=== PATIENT | female | born 2000 | race Caucasian/White ===

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

== ENCOUNTER 2022-01-26 22:06 | Outpatient (CLI) | payer MEDICAID | END 2022-01-26 22:07 | disposition EMS.NT | LOC: EMS 22:06 | DX: O9A.23 Injury, poisoning and certain other consequences of external causes complicating the puerperium (principal); T39.1X2A Poisoning by 4-Aminophenol derivatives, intentional self-harm, initial encounter; T45.4X2A Poisoning by iron and its compounds, intentional self-harm, initial encounter; Y92.481 Parking lot as the place of occurrence of the external cause ==

== ENCOUNTER 2022-01-26 22:24 | Emergency (ER) | payer MEDICAID ==
[2022-01-26 22:47] VITALS: BP 127/85
[2022-01-26 23:08] LABS: BASOPHILS % (AUTO) 0.3 %; EOSINOPHILS # (AUTO) 0.1 10^3/uL (0.0-0.7); EOSINOPHILS % (AUTO) 1.8 %; HGB - HEMOGLOBIN 11.9 g/dL (12.0-16.0); LYMPHOCYTES # (AUTO) 1.9 10^3/uL (1.5-3.5); LYMPHOCYTES % (AUTO) 30.4 %; MEAN CORPUSCULAR HEMOGLOBIN 24.1 pg (27.0-31.0); MEAN CORPUSCULAR HGB CONC 30.5 g/dL (32.0-36.0); MEAN CORPUSCULAR VOLUME 79.1 fL (81.0-99.0); MEAN PLATELET VOLUME 9.8 fL (7.9-10.8); MONOCYTES # (AUTO) 0.5 10^3/uL (0.0-1.0); MONOCYTES % (AUTO) 8.7 %; NEUTROPHILS # (AUTO) 3.6 10^3/uL (1.5-6.6); NEUTROPHILS % (AUTO) 58.3 %; PLT - PLATELET COUNT 257 10^3/uL (130-450); RED BLOOD COUNT 4.93 10^6/uL (4.20-5.40); RED CELL DISTRIBUTION WIDTH 15.3 % (12.0-15.0); WHITE BLOOD COUNT 6.2 x10^3/uL (4.8-10.8)
[2022-01-26 23:21] LABS: ACETAMINOPHEN < 10 ug/mL (10-30); ALBUMIN 4.5 g/dL (3.2-5.5); ALBUMIN/GLOBULIN RATIO 1.3 (1.0-2.2); ALKALINE PHOSPHATASE 82 IU/L (42-121); ALT ALANINE AMINOTRANSFERASE 13 IU/L (10-60); AST ASPARTATE AMINOTRANSFERASE 16 IU/L (10-42); BILIRUBIN,TOTAL 0.8 mg/dL (0.2-1.0); BUN - BLOOD UREA NITROGEN 11 mg/dL (6-20); CALCIUM 9.6 mg/dL (8.5-10.3); CARBON DIOXIDE - CO2 26 mmol/L (21-32); CHLORIDE 102 mmol/L (101-111); CREATININE 0.7 mg/dL (0.4-1.0); ETOH - ETHANOL < 5.0 mg/dL; GFR - MDRD 106 (>89); GLUCOSE 96 mg/dL (70-100); LIPASE 33 U/L (22-51); POTASSIUM 3.2 mmol/L (3.5-5.0); SALICYLATE < 6.0 mg/dL; SODIUM 140 mmol/L (135-145); TOTAL PROTEIN 8.1 g/dL (6.7-8.2)
[2022-01-26 23:21] LABS: MUDS CUTOFF CONCENTRATIONS CUTOFF CONC BELOW:
[2022-01-26 23:25] LABS: BILIRUBIN,URINE NEGATIVE (NEGATIVE); GLUCOSE, URINE (UA) NEGATIVE (NEGATIVE); KETONES,URINE (UA) NEGATIVE (NEGATIVE); LEUKOCYTE ESTERASE, URINE NEGATIVE (NEGATIVE); NITRITE,URINE NEGATIVE (NEGATIVE); OCCULT BLOOD,URINE SMALL (NEGATIVE); PROTEIN,URINE NEGATIVE (NEGATIVE); UROBILINOGEN,URINE 0.2 (NORMAL) E.U./dL (NORMAL)
[2022-01-26 23:28] LABS: CLARITY,URINE CLEAR (CLEAR); HCG UR QUAL NEGATIVE
[2022-01-26 23:33] LABS: BACTERIA,URINE Rare /HPF (None Seen); MUCUS,URINE Few Strands; RBC,URINE 0-5 /HPF (0-5); SQUAMOUS EPITHELIAL CELL,UR RARE Squamous (<= Few)
--- OUTSIDE RECORDS SUMMARY | 2022-01-26 23:38 | EXTERNAL MEDICAL SUMMARY RPT | Continuity of Care Document ---
:2000 Author Organization [facility] Address [address] [phone] Phone Allergies No information. Encounters No information. Medications No information. Problems date description facility [id number] Outcome of delivery, unspecified [facility] [id number] Encounter for full-term uncomplicated [employer] delivery [id number] Suicidal ideations [email or web address] [id number] 31 weeks gestation of [employer] Results No information.
[2022-01-26 23:40] LABS: COCAINE SCREEN URINE NEGATIVE (NEGATIVE); METHAMPHETAMINES SCREEN, URINE NEGATIVE (NEGATIVE); THC CANNABINOID SCREEN, URINE POSITIVE (NEGATIVE)
[2022-01-26 23:41] LABS: AMPHETAMINE SCREEN,URINE NEGATIVE (NEGATIVE); BARBITURATE SCREEN,UR NEGATIVE (NEGATIVE); BENZODIAZEPINES SCREEN, URINE NEGATIVE (NEGATIVE); METHADONE SCREEN, URINE NEGATIVE (NEGATIVE); OPIATE SCREEN, URINE NEGATIVE (NEGATIVE); OXYCODONE SCREEN, URINE NEGATIVE (NEGATIVE); PROPOXYPHENE SCREEN, URINE NEGATIVE (NEGATIVE); TRICYCLIC ANTIDEPRESSANT,URINE NEGATIVE (NEGATIVE)
--- NOTE | 2022-01-27 02:21 | ED Physician Documentation ---
PD HPI MHE - Stated complaint Stated Complaint: SI - Chief complaint Chief Complaint: MHE - History obtained from History obtained from: Patient - History of Present Illness Primary symptom: Suicidal ideation, Self harm - OD Timing - onset: Today Contributing factors: Other (post ) Similar symptoms before: Diagnosis (depression) Recently seen: Admitted - Additional information Additional information: 21-year-old female who is 2 weeks has not been sleeping and she has become depressed and suicidal. This evening she impulsively took a handful of Tylenol and iron pills.Indication was she did this to harm herself.She has had a recent admission to the psychiatric facility before the of her daughter and does not want to go back. Review of Systems Constitutional: denies: Fever Ears: denies: Ear pain Nose: denies: Congestion Throat: denies: Sore throat Cardiac: denies: Chest pain / pressure, Palpitations Respiratory: denies: Dyspnea, Cough GI: denies: Abdominal Pain, Nausea, Vomiting : denies: Dysuria, Frequency Skin: denies: Rash, Lesions Musculoskeletal: denies: Neck pain, Back pain, Extremity pain Neurologic: denies: Generalized weakness, Focal weakness, Numbness Psychiatric: reports: Depressed, Suicidal, Insomnia. 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 : None HEENT: None Psych: Depression, Anxiety, ADD/ADHD Musculoskeletal: None Derm: None Other Past Medical History: Pt reported - Past Surgical History Past Surgical History: No - Allergies Allergies/Adverse Reactions: Allergies Allergy/AdvReac Type Severity Reaction Status Date / Time azithromycin Allergy Hives Verified 05/05/19 14:52 - Social History Does the pt smoke?: No Smoking Status: Never smoker Does the pt drink ETOH?: No Does the pt have substance abuse?: Yes - Immunizations Immunizations are current?: Yes - POLST Patient has POLST: No PD ED PE NORMAL - Vitals Vital signs reviewed: Yes (hypertensive ) - General General: Alert and oriented X 3, No acute distress, Well developed/nourished - HEENT HEENT: Atraumatic, PERRL, EOMI - Neck Neck: Supple, no meningeal sign, No bony TTP - Cardiac Cardiac: RRR, No murmur - Respiratory Respiratory: No respiratory distress, Clear bilaterally - Abdomen Abdomen: Soft, Non tender - Back Back: No CVA TTP, No spinal TTP - Derm Derm: Normal color, Warm and dry, No rash - Extremities Extremities: No deformity, No edema - Neuro Neuro: technical operations vice president 2-12 intact, No motor deficit, No sensory deficit, Normal speech Eye Opening: Spontaneous Motor: Obeys Commands Verbal: Oriented GCS Score: 15 - Psych Psych: Other (mood is resistent and the affect is flat ) Results - Vitals Vitals: Vital Signs - 24 hr 01/26/22 22:30 Temperature 36.6 C Heart Rate 95 Respiratory 20 Rate Blood Pressure 127/85 H O2 Saturation 98 Oxygen O2 Source Room air - Labs Labs: Laboratory Tests 01/26/22 01/26/22 01/26/22 02:30 22:45 22:45 WBC 6.2 RBC 4.93 Hgb 11.9 L Hct 39.0 MCV 79.1 L MCH 24.1 L MCHC 30.5 L RDW 15.3 H Plt Count 257 MPV 9.8 Neut # (Auto) 3.6 Lymph # (Auto) 1.9 Jennings # (Auto) 0.5 Eos # (Auto) 0.1 Baso # (Auto) 0.0 Absolute Nucleated RBC 0.00 Nucleated RBC % 0.0 Sodium 140 Potassium 3.2 L Chloride 102 Carbon Dioxide 26 Anion Gap 12.0 BUN 11 Creatinine 0.7 Estimated GFR (MDRD) 106 Glucose 96 Calcium 9.6 Total Bilirubin 0.8 AST 16 ALT 13 Alkaline Phosphatase 82 Total Protein 8.1 Albumin 4.5 Globulin 3.6 Albumin/Globulin Ratio 1.3 Lipase 33 TSH Urine Color Urine Clarity Urine pH Ur Specific [place] Urine Protein Urine Glucose (UA) Urine Ketones Urine Occult Blood Urine Nitrite Urine Bilirubin Urine Urobilinogen Ur Leukocyte Esterase Urine RBC Urine WBC Ur Squamous Epith Cells Urine Bacteria Urine Mucus Ur Microscopic Review Urine Culture Comments Urine HCG, Qual Salicylates < 6.0 Urine Opiates Screen Ur Oxycodone Screen Urine Methadone Screen Ur Propoxyphene Screen Acetaminophen < 10 L < 10 L Ur Barbiturates Screen Ur Tricyclics Screen Ur Phencyclidine Scrn Ur Amphetamine Screen U Methamphetamines Scrn U Benzodiazepines Scrn Urine Cocaine Screen U Cannabinoids Screen Ethyl Alcohol < 5.0 01/26/22 01/26/22 22:45 23:15 WBC RBC Hgb Hct MCV MCH MCHC RDW Plt Count MPV Neut # (Auto) Lymph # (Auto) Jennings # (Auto) Eos # (Auto) Baso # (Auto) Absolute Nucleated RBC Nucleated RBC % Sodium Potassium Chloride Carbon Dioxide Anion Gap BUN Creatinine Estimated GFR (MDRD) Glucose Calcium Total Bilirubin AST ALT Alkaline Phosphatase Total Protein Albumin Globulin Albumin/Globulin Ratio Lipase TSH 1.88 Urine Color YELLOW Urine Clarity CLEAR Urine pH 6.0 Ur Specific [place] >=1.030 H Urine Protein NEGATIVE Urine Glucose (UA) NEGATIVE Urine Ketones NEGATIVE Urine Occult Blood SMALL H Urine Nitrite NEGATIVE Urine Bilirubin NEGATIVE Urine Urobilinogen 0.2 (NORMAL) Ur Leukocyte Esterase NEGATIVE Urine RBC 0-5 Urine WBC 4-5 Ur Squamous Epith Cells RARE Squamous Urine Bacteria Rare Urine Mucus Few Strands Ur Microscopic Review INDICATED Urine Culture Comments NOT INDICATED Urine HCG, Qual NEGATIVE Salicylates Urine Opiates Screen NEGATIVE Ur Oxycodone Screen NEGATIVE Urine Methadone Screen NEGATIVE Ur Propoxyphene Screen NEGATIVE Acetaminophen Ur Barbiturates Screen NEGATIVE Ur Tricyclics Screen NEGATIVE Ur Phencyclidine Scrn NEGATIVE Ur Amphetamine Screen NEGATIVE U Methamphetamines Scrn NEGATIVE U Benzodiazepines Scrn NEGATIVE Urine Cocaine Screen NEGATIVE U Cannabinoids Screen POSITIVE H Ethyl Alcohol PD MEDICAL DECISION MAKING - ED course Complexity details: reviewed old records, reviewed results, re-evaluated patient, considered differential, d/w patient ED course: 21-year-old Nina Leos has a 2-week-old baby and she has not slept. She appears depressed she is suicidal she has taken a overdose of iron pills and acetaminophen. Oddly enough we are not able to detect any acetaminophen in her system. Even at the 4-hour gilmer. She did this impulsively and she does not want to be here in the emergency department. We considered this a high risk for potential harm to both the mother and the baby and we asked for telepsych. Dr. Prudencio Pierce recommended inpatient psychiatric care without modification of her medications. He recommended detainment. The patient eloped from the emergency department after her visit with the psychiatrist and law enforcement was sent to retrieve her. She was not retrieved. Departure - Departure Disposition: ED Elope Clinical Impression: Suicidal ideation Depression Qualifiers: Depression Type: major depressive disorder Major depression recurrence: recurrent Active/Remission status: currently active Major depression episode severity: moderate Qualified Code(s): F33.1 - Major depressive disorder, recurrent, moderate Discharge Date/Time: 01/27/22 03:15
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
== END 2022-01-27 03:15 | disposition left against medical advice (07) ==
LOC: ED 22:24
DX: O9A.23 Injury, poisoning and certain other consequences of external causes complicating the puerperium (principal); T45.4X2A Poisoning by iron and its compounds, intentional self-harm, initial encounter; T39.1X2A Poisoning by 4-Aminophenol derivatives, intentional self-harm, initial encounter; R45.851 Suicidal ideations; F12.10 Cannabis abuse, uncomplicated; F33.2 Major depressive disorder, recurrent severe without psychotic features
CPT/HCPCS: 36415; 80053; 80306; 80307; 80320; 80329; 81001; 81025; 83690; 84443; 85025; 99283; G0425; Q3014; 81003; 87086

== ENCOUNTER 2022-02-12 16:35 | Outpatient (CLI) | payer MEDICAID | END 2022-02-12 16:36 | disposition home or self-care (01) | LOC: LAB 16:35 | PROVIDERS: ATTEND Nurse Practitioner Family | DX: D68.52 Prothrombin gene mutation (principal); Z79.01 Long term (current) use of anticoagulants | CPT/HCPCS: 36416; 85610 ==

== ENCOUNTER 2022-05-13 18:58 | Emergency (ER) | payer MEDICAID ==
[2022-05-13] MEDS ORDERED: METOCLOPRAMIDE 10 MG/2 ML VIAL IVP STA (20:11)
[2022-05-13] MEDS ORDERED: diphenhydrAMINE INJ 50 MG/ML VIAL IVP STA (20:11)
--- NOTE | 2022-05-13 20:15 | ED Physician Documentation ---
History of Present Illness - Stated complaint Stated Complaint: MIGRAINE,VOMITING,DIZZY - Chief complaint Chief Complaint: Neuro - History obtained from History obtained from: Patient - Additonal information Additional information: 21-year-old woman with history of migraines, fairly frequent migraines presents with a headache starting about 2 PM today. It was not sudden onset but fairly rapid onset and slightly atypical for her headaches. Her headaches are usual in her temples and this 1 is more occipital to frontal. She complains of light sensitivity and multiple episodes of vomiting with it. She denies fevers or chills or neck stiffness. 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 CONCIERGE: None : None HEENT: None Psych: Depression, Anxiety, ADD/ADHD Musculoskeletal: None Derm: None - Past Surgical History Past Surgical History: No - Present Medications Home Medications: Ambulatory Orders Medication Instructions Recorded Confirmed SUMAtriptan [Imitrex] 25 mg PO BID PRN #10 tablet 05/13/22 Sertraline HCl 200 mg PO DAILY 05/13/22 05/13/22 - Allergies Allergies/Adverse Reactions: Allergies Allergy/AdvReac Type Severity Reaction Status Date / Time azithromycin Allergy Hives Verified 05/13/22 19:18 - Social History Does the pt smoke?: No Smoking Status: Never smoker Does the pt drink ETOH?: No Does the pt have substance abuse?: Yes - Immunizations Immunizations are current?: Yes - POLST Patient has POLST: No PD ED PE NORMAL - Vitals Vital signs reviewed: Yes - General General: Alert and oriented X 3, Other (She appears uncomfortable and light sensitive,) - HEENT HEENT: PERRL, EOMI - Neck Neck: Supple, no meningeal sign, No bony TTP - Neuro Neuro: Alert and oriented X 3, assistant hvac mechanic 2-12 intact, No motor deficit, No sensory deficit, Normal speech Eye Opening: Spontaneous Motor: Obeys Commands Verbal: Oriented GCS Score: 15 - Psych Psych: Normal mood, Normal affect Results - Vitals Vitals: Vital Signs - 24 hr 05/13/22 05/13/22 19:14 21:45 Temperature 36.1 C L 36.3 C L Heart Rate 95 79 Respiratory 20 18 Rate Blood Pressure 131/79 H 122/72 O2 Saturation 99 99 Oxygen O2 Source Room air - Rads (name of study) CT of the head is unremarkable Radiology: EMP read contemporaneously PD MEDICAL DECISION MAKING - ED course ED course: HX migraines, but atypical location for her and faster onset so CT done to eval for SAH and Neg. Feeling headache all but gone p reglan/benadryl IV, but developed akathisia tx w ativan Departure - Departure Disposition: Home, Self Care Clinical Impression: Migraine Qualifiers: Migraine type: without aura Status migrainosus presence: without status migrainosus Intractability: not intractable Qualified Code(s): G43.009 - Migraine without aura, not intractable, without status migrainosus Condition: Good Record reviewed to determine appropriate education?: Yes Instructions: ED Headache Migraine Prescriptions: SUMAtriptan [Imitrex] 25 mg PO BID PRN #10 tablet PRN Reason: Headache Comments: You were seen today for migraine headache, CAT scan of the head was done because the migraine was atypical for you and rapid onset but thankfully showed no physical problems with your brain. You got good headache relief with a combination of Benadryl and metoclopramide. Unfortunately your are having a side effect from the metoclopramide known as akathisia making you feel jittery. This is not uncommon and you may want to avoid this medication in the future noting that it is not a true allergy. I am also writing a prescription for Imitrex for further migraines, you can take this to any pharmacy. Follow-up with your primary care physician, next available appointment. Return for new or worsening symptoms. Do not drink or drive tonight. Discharge Date/Time: 05/13/22 21:45
--- NOTE | 2022-05-13 20:54 | CT Report ---
PROCEDURE: HEAD WO INDICATIONS: headache TECHNIQUE: Noncontrast 4.5 mm thick angled axial sections acquired from the foramen magnum to the vertex. For r adiation dose reduction, the following was used: automated exposure control, adjustment of mA and/or kV according to patient size. COMPARISON: None. FINDINGS: Image quality: Excellent. CSF spaces: Basal cisterns are patent. No extra-axial fluid collections. Ventricles are normal in size and shape. Brain: No intracranial hemorrhage, mass, or mass effect. Larios-white matter interface appears preser moon. Skull and face: Calvarium and visualized facial bones are intact, without suspicious lesions. Sinuses: Visualized sinuses and mastoids are clear. IMPRESSION: 1. No acute intracranial abnormality. Reviewed by: Amandeep Barahona MD on 05/13/2022 8:52 PM PDT Approved by: Amandeep Barahona MD on 05/13/2022 8:52 PM PDT Station ID: [id number]
[2022-05-13] MEDS ORDERED: LORazepam 2 MG/ML VIAL IM STA (21:23)
[2022-05-13 21:47] VITALS: BP 122/72
== END 2022-05-13 21:45 | disposition home or self-care (01) ==
LOC: ED 18:58
DX: G43.009 Migraine without aura, not intractable, without status migrainosus (principal); G25.71 Drug induced akathisia; T45.0X5A Adverse effect of antiallergic and antiemetic drugs, initial encounter; Y92.538 Other ambulatory health services establishments as the place of occurrence of the external cause
CPT/HCPCS: 70450; 96374; 96375; 99284; J1200; J2060; J2765

== ENCOUNTER 2023-11-11 20:17 | Emergency (ER) | payer MEDICAID ==
[2023-11-11 20:27] VITALS: BP 109/63; O2SAT 100
--- NOTE | 2023-11-11 21:56 | ED Physician Documentation ---
PD HPI SKIN - Stated complaint Stated Complaint: LT WRIST LAC - Chief complaint Chief Complaint: Laceration - Additional information Additional information: 23-year-old female presents emergency department for left wrist laceration. Patient says that she was helping clean a house that was very cluttered she tripped and fell onto something and sustained a laceration to her left wrist. Bleeding is well-controlled she is up-to-date with her tetanus shot she is unsure what she cut it on, denies use of blood thinners. 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 : None HEENT: None Psych: Depression, Anxiety, ADD/ADHD Musculoskeletal: None Derm: None Other Past Medical History: "blood clotting disorder" - Past Surgical History Past Surgical History: No - Present Medications Home Medications: Ambulatory Orders Medication Instructions Recorded Confirmed Escitalopram [Lexapro] 10 mg PO DAILY 11/11/23 11/11/23 Methylphenidate [Ritalin] 10 mg PO DAILY 11/11/23 11/11/23 hydrOXYzine HCL [Hydroxyzine HCl] 10 mg PO DAILY 11/11/23 11/11/23 - Allergies Allergies/Adverse Reactions: Allergies Allergy/AdvReac Type Severity Reaction Status Date / Time azithromycin Allergy Hives Verified 11/11/23 20:27 - Social History Does the pt smoke?: Yes Smoking Status: Current every day smoker Does the pt drink ETOH?: No Does the pt have substance abuse?: No - Immunizations Immunizations are current?: Yes - POLST Patient has POLST: No PD ED PE NORMAL - Vitals Vital signs reviewed: Yes - General General: No acute distress, Well developed/nourished - Derm Derm: Normal color, Warm and dry, Other (Left wrist laceration, about 3 inches superior to the wrist, laceration is about 2 cm in length linear with exposure of fatty tissue.) - Extremities Extremities: No edema Results - Vitals Vitals: Vital Signs - 24 hr 11/11/23 20:22 Temperature 36.6 C Heart Rate 86 Respiratory 16 Rate Blood Pressure 109/63 O2 Saturation 100 Oxygen O2 Source Room air PD Medical Decision Making - ED course ED course: Wound inspected under direct bright light with good visualization. Area with linear laceration across soft tissue through adipose without exposure of muscle belly or tendon. No overt foreign body. Area hemostatic. Neurovascular exam congruent with above. Area extensively irrigated with sterile normal saline under pressure. Laceration repaired in simple fashion with 2 steri strips bc pt declined sutures.(please see procedure note for further details). Patient tolerated procedure well. Cautious return precautions discussed w/ full understanding. Wound care discussed. Departure - Departure Disposition: 01 Home, Self Care Clinical Impression: Wrist laceration Qualifiers: Encounter type: initial encounter Laterality: left Qualified Code(s): S61.512A - Laceration without foreign body of left wrist, initial encounter Condition: Good Instructions: ED Laceration Ext Skin Glue Comments: Thank you for trusting us with your care. We have placed Steri-Strips and glue to the laceration on the left wrist keep this on for 7 to 10 days do not leave it on for longer than 10 days. Keep an eye out for signs and symptoms of infection which include drainage that is yellow or green collecting underneath the glue and Steri-Strips, redness that is expanding, streaking up your arm, fevers or chills. Please come back to the emergency department if you are noticing any of these signs. As we discussed your scar will be bigger because you did not want the stitches you can apply SPF over the wound to help with scar reduction. Forms: PCP List Discharge Date/Time: 11/11/23 22:00
== END 2023-11-11 22:00 | disposition home or self-care (01) ==
LOC: ED 20:17
DX: S61.512A Laceration without foreign body of left wrist, initial encounter (principal); W01.0XXA Fall on same level from slipping, tripping and stumbling without subsequent striking against object, initial encounter; Y93.E9 Activity, other interior property and clothing maintenance; F17.200 Nicotine dependence, unspecified, uncomplicated
CPT/HCPCS: 99282

== ENCOUNTER 2023-11-13 11:16 | Emergency (ER) | payer MEDICAID ==
[2023-11-13 11:33] VITALS: BP 124/66; O2SAT 100
--- NOTE | 2023-11-13 11:43 | ED Physician Documentation ---
PD HPI SKIN - Stated complaint Stated Complaint: LT HAND LAC - Chief complaint Chief Complaint: Laceration - Additional information Additional information: 23-year-old female up-to-date with all immunizations including tetanus was here 2 days ago for a laceration to her right wrist. I was her provider at that time I attempted to give stitches but patient declined and said that she did not want stitches and only wanted glue and Steri-Strips. 2 Steri-Strips were placed over the laceration with glue. She comes back to the emergency department for concerns of possible infection and concerns of oozing bleeding collecting under the glue. 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 : None HEENT: None Psych: Depression, Anxiety, ADD/ADHD Musculoskeletal: None Derm: None Other Past Medical History: clotting disorder - Past Surgical History Past Surgical History: No - Present Medications Home Medications: Ambulatory Orders Medication Instructions Recorded Confirmed Escitalopram [Lexapro] 10 mg PO DAILY 11/11/23 11/13/23 Methylphenidate [Ritalin] 10 mg PO DAILY 11/11/23 11/13/23 hydrOXYzine HCL [Hydroxyzine HCl] 25 mg PO Q6HR PRN 11/13/23 11/13/23 - Allergies Allergies/Adverse Reactions: Allergies Allergy/AdvReac Type Severity Reaction Status Date / Time azithromycin Allergy Hives Verified 11/13/23 11:23 - Social History Does the pt smoke?: Yes Smoking Status: Current some day smoker Does the pt drink ETOH?: No Does the pt have substance abuse?: No - Immunizations Immunizations are current?: Yes - POLST Patient has POLST: No PD ED PE NORMAL - Vitals Vital signs reviewed: Yes - General General: Alert and oriented X 3, No acute distress - Derm Derm: Other (left forearm (palmar aspect) 2cm laceration with glue and steri strips and mild erythema spreading up forearm) Results - Vitals Vitals: Vital Signs - 24 hr 11/13/23 11:23 Temperature 36.3 C L Heart Rate 90 Respiratory 16 Rate Blood Pressure 124/66 O2 Saturation 100 Oxygen O2 Source Room air PD Medical Decision Making - ED course ED course: 23-year-old female presents emergency department for left forearm laceration infection. Steri-Strips and glue were removed without any difficulty there does appear to be some purulent drainage collecting at the wound. When patient was here previously I told her that stitches would be best for this type of laceration but patient said that she declined. I numbed the area and irrigated it thoroughly, there was some purulent drainage in the wound with surrounding erythema around the wound indicating infection. She was started on doxycycline and prescription sent to preferred pharmacy. Lose steri strips with placed and pt was told keep the area clean and dry and that she will have a bigger scar because of this and we will allow it to heal by secondary intention with loose steri strips. Departure - Departure Forms: PCP List
[2023-11-13] MEDS ORDERED: LIDOCAINE 1%-EPI 1:100000 10 ML MDV TD STA (11:54)
[2023-11-13] MEDS: cephALEXin 250 MG CAPSULE PO STA (12:03)
[2023-11-13] MEDS: LIDOCAINE 1%-EPI 1:100000 20 ML MDV TD ONE (12:04)
[2023-11-13] MEDS: DOXYCYCLINE 100 MG TABLET PO STA (12:04)
== END 2023-11-13 12:51 | disposition home or self-care (01) ==
LOC: ED 11:16
DX: S51.812A Laceration without foreign body of left forearm, initial encounter (principal); L08.9 Local infection of the skin and subcutaneous tissue, unspecified; X58.XXXA Exposure to other specified factors, initial encounter; F17.200 Nicotine dependence, unspecified, uncomplicated
CPT/HCPCS: 99282; 99283; A9270